=== PATIENT | male | born 1950 | race Caucasian/White ===

== ENCOUNTER → 2016-09-04 | Outpatient (CLI) | payer BC ==
[~2016-09-04] MED LIST: ACTOS15 MG PO; ALBUTEROL17 GM INH; ALEVE220 M1 PO; ALLERGY RELIEF180 MG PO; APIDRA (NF100 UNITS/ SUBQ; ASPIRIN EC81 M1 PO; ASPIRINEC PO; B COMPLEX1 TAB PO; BACTRIM DS TABL1 TA1 PO; BAYER ASPIRIN325 M1 PO; BENICAR HCT 40-1 TA1 PO; BENTYL10 MG DOB; CADUET 5 MG/101 TAB PO; CARDURA PO; CARDURA4 M1 PO; CELEBREX PO; CELEXA PO; CITALOPRAM HBR40 MG PO; CYMBALTA30 MG PO; DICYCLOMINE HCL20 MG PO; EXFORGE 5-320 M1 TAB PO; FARXIGA5 MG PO; FISH OIL 1,0001 CAP PO; FISH OIL 1,001000 MG PO; FISH OIL SOFTGE1 CA1 PO; FISH OIL300 MG PO; FLEXERIL PO; GLUCOPHAGE500 MG PO; JANUVIA PO; KETOPROFEN PO; KLOR-CON PO; LANTUS100 U/ML SQ; LANTUS100 U/ML SUBQ; LEXAPRO20 MG PO; LISINOPRIL PO; LOZOL PO; METFORMIN PO; MOTION RELIEF25 MG PO; MULTI VITAMIN1 EACH PO; MULTIPLE VITAMI1 T11 PO; NAPROSYN500 MG PO; NIASPAN PO; NORVASC PO; OMEPRAZOLE20 M1 PO; ONGLYZA5 MG PO; PERCOCET 7.5/321 TAB PO; PERCOCET5/325 PO; PRINIVIL40 MG PO; TRAVATAN5 ML OP; TRICOR134 MG PO; TRILIPIX135 MG PO; TYLENOL #3 PO; UNK B/P MED; UNK PAIN MED; VICODIN 5/500 T1 TAB PO; VITAMIN C W/R1000 M1 PO; VITAMIN C1000 M1 PO; VITAMIN D1000 UNI1 PO; VITAMIN E400 UNI1 PO; VITAMIN E400 UNI2 PO; WALGREENS PHARMACY; ZOLOFT PO
--- NOTE | ~2016-09-04 | CT3 ---
[facility] A Service of [facility] RADIOLOGY TEXT RESULTS PATIENT: SWEETIE WEN [facility] : 52 UNIT #: [id number] AGE: [address]: Elia Lew MD SEX: M ORDER DR: [id number] [facility] [address] [place], [place] [address] [id number] O MR#: [id number] Acc #: [id number] NAME: SWEETIE WEN : 1950 SEX: M STUDY DATE/TIME: 09/04/2016 11:34 UNIT: CCAT ROOM: STUDY DESCRIPTION: CT Abd and Pelv WWo Cont Attending Physician: Elia Lew M.D. Referring Physician: Elia Lew M.D. Ordering Physician: Elia Lew M.D. Primary Care Physician: Daniel Jaime M.D. MEDICAL IMAGING REPORT This report is preliminary unless electronic signature is present EXAM CT abdomen without contrast. CT abdomen and pelvis with contrast. INDICATIONS Generalized abdominal pain for the past 3 months. Indeterminate lesion at the lower pole of the right kidney on previous CT at an outside facility. PROCEDURE Unenhanced CT of the abdomen. Postcontrast CT of the abdomen and pelvis with multiphase acquisition through the kidneys. This CT exam was performed with one or more of the following radiation dose reduction techniques: automatic exposure control, adjustment of mA and/or kV according to patient size, and iterative reconstruction. COMPARISON 03/06/2011, and report from a CT performed at [facility] on 08/01/16. FINDINGS ABDOMEN WITHOUT CONTRAST: Included lung bases clear. Significant hepatic steatosis. No radiodense gallstones. There is a 6 mm nonobstructing calculus at the lower pole of the left kidney. ABDOMEN WITH CONTRAST: 3.6 cm benign cyst at the lower pole of the right kidney. Precontrast HU value of 2 and a postcontrast HU value of 11.5. S, symmetric excretion of contrast. No enhancing renal mass. Symmetric excretion of contrast. No liver or , splenic mass. Adrenal glands, pancreas unremarkable. Possible 7 mm stone in the gallbladder, but no evidence for inflammation on CT. Bowel loops are nondilated. Uncomplicated sigmoid diverticula. Moderate colonic stool. 3.8 cm fat-containing umbilical hernia. [facility] A Service of [facility] RADIOLOGY TEXT RESULTS PATIENT: SWEETIE WEN LOCATION: [facility] : 52 UNIT #: [id number] AGE: [address]: Elia Lew MD SEX: M ORDER DR: PELVIS WITH CONTRAST: No pelvic mass or fluid. No aggressive-appearing bone lesion. IMPRESSION 1. 3.6 cm benign cyst at the lower pole of the right kidney. No evidence for enhancing renal mass. 2. Hepatomegaly with significant steatosis. 3. Other incidental findings detailed above. Dictated by... Andrzej Muller M.D. THIS IS AN ELECTRONICALLY VERIFIED REPORT Andrzej Muller M.D. at 09/05/2016 2:01 PM WILMER/shemar TD: 09/04/2016 17:45 JOB #: [id number] MEDICAL IMAGING REPORT Page 1 of 1 COPY
[2016-09-04 10:56] LABS: POC - CREATININE 0.82 mg/dL (0.64-1.27); POC - GFR >60.0 mL/min (>60)
== END | disposition home or self-care (01) ==
LOC: CCAT 09:19
PROVIDERS: Urology
DX: N28.89 Other specified disorders of kidney and ureter (principal); N28.1 Cyst of kidney, acquired; K76.0 Fatty (change of) liver, not elsewhere classified
CPT/HCPCS: 74178; 82565; Q9967